=== PATIENT | female | born 1950 | race Caucasian/White ===

== ENCOUNTER → 2016-09-12 | Outpatient (CLI) | payer MEDICARE, OTHER ==
[2016-09-12 10:03] LABS: MEAN CORPUSCULAR HGB CONC 33.3 g/dl (32.0-36.5); MEAN CORPUSCULAR VOLUME 90.1 fl (80.0-96.0); RED CELL DISTRIBUTION WIDTH 13.5 % (11.5-14.5); WHITE BLOOD COUNT 5.3 K/mm3 (4.0-10.0)
--- NOTE | 2016-09-12 10:34 | REP ---
Chest two views HISTORY: Hypertension Comparison: 02/28/2011 The lungs are clear. The heart is normal in size. The pulmonary vasculature is normal in appearance. The bony structure is intact. A dorsal column stimulator is present at the C7-T1 level. IMPRESSION: No acute disease. Signed by Tom Jackson MD 09/12/2016 10:25 A
[2016-09-12 10:36] LABS: ALBUMIN 3.5 GM/DL (3.2-5.2); ALBUMIN/GLOBULIN RATIO 1.17 (1.00-1.93); ALKALINE PHOSPHATASE 49 U/L (45-117); ALT/SGPT 22 U/L (12-78); ANION GAP 8 MEQ/L (8-16); AST/SGOT 9 U/L (15-37); BILIRUBIN,TOTAL 0.6 MG/DL (0.2-1.0); BLOOD UREA NITROGEN 17 MG/DL (7-18); CALCIUM LEVEL 8.7 MG/DL (8.8-10.2); CARBON DIOXIDE LEVEL 33 MEQ/L (21-32); CHLORIDE LEVEL 99 MEQ/L (98-107); CHOLESTEROL LEVEL 231 MG/DL (<200); CREATININE FOR GFR 0.82 MG/DL (0.55-1.02); GLOMERULAR FILTRATION RATE > 60.0 (>45); GLUCOSE, FASTING 102 MG/DL (80-110); POTASSIUM SERUM 3.2 MEQ/L (3.5-5.1); SODIUM LEVEL 140 MEQ/L (136-145); THYROXINE (T4) 10.6 UG/DL (4.5-12.0); TOTAL PROTEIN 6.5 GM/DL (6.4-8.2); TRIGLYCERIDES LEVEL 95 MG/DL (<150)
--- NOTE | 2016-09-13 07:59 | ECGEPIP ---
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
== END ==
LOC: M LAB 09:04
PROVIDERS: ATTEND Family Medicine
DX: I10 Essential (primary) hypertension (principal); E03.9 Hypothyroidism, unspecified

== ENCOUNTER → 2016-09-18 | Outpatient (REF) | payer MEDICARE, OTHER | LOC: M LAB REF 16:21 | PROVIDERS: ATTEND Nurse Practitioner Family | DX: L08.9 Local infection of the skin and subcutaneous tissue, unspecified (principal) ==

== ENCOUNTER → 2018-02-08 | Outpatient (CLI) | payer MEDICARE, OTHER ==
[2018-02-08 13:00] LABS: HEMATOCRIT 45.3 % (36.0-47.0); HEMOGLOBIN 15.2 g/dl (12.0-15.5); MEAN CORPUSCULAR HEMOGLOBIN 29.6 pg (27.0-33.0); MEAN CORPUSCULAR HGB CONC 33.6 g/dl (32.0-36.5); MEAN CORPUSCULAR VOLUME 88.3 fl (80.0-96.0); PLATELET COUNT, AUTOMATED 323 10^3/uL (150-450); RED BLOOD COUNT 5.13 10^6/uL (4.00-5.40); RED CELL DISTRIBUTION WIDTH 14.7 % (11.5-14.5); WHITE BLOOD COUNT 6.8 10^3/uL (4.0-10.0)
[2018-02-08 13:37] LABS: ALBUMIN 3.6 GM/DL (3.2-5.2); ALKALINE PHOSPHATASE 47 U/L (45-117); ALT/SGPT 26 U/L (12-78); ANION GAP 9 MEQ/L (8-16); AST/SGOT 13 U/L (7-37); BILIRUBIN,TOTAL 0.6 MG/DL (0.2-1.0); BLOOD UREA NITROGEN 17 MG/DL (7-18); CALCIUM LEVEL 8.6 MG/DL (8.8-10.2); CARBON DIOXIDE LEVEL 28 MEQ/L (21-32); CHLORIDE LEVEL 104 MEQ/L (98-107); CHOLESTEROL LEVEL 248 MG/DL (<200); CHOLESTEROL RISK RATIO 3.542 (<5); CREATININE FOR GFR 0.85 MG/DL (0.55-1.30); GLOMERULAR FILTRATION RATE > 60.0 (>39); GLUCOSE, FASTING 88 MG/DL (70-100); HDL CHOLESTEROL 70 MG/DL (>40); LDL CHOLESTEROL 152 MG/DL (<100); NON-HDL-C 178 MG/DL; POTASSIUM SERUM 3.7 MEQ/L (3.5-5.1); SODIUM LEVEL 141 MEQ/L (136-145); THYROID STIMULATING HORMONE 0.336 uIU/ML (0.358-3.740); TOTAL PROTEIN 6.6 GM/DL (6.4-8.2); TRIGLYCERIDES LEVEL 128 MG/DL (<150)
[2018-02-08 13:59] LABS: TOTAL 25(OH) VITAMIN D 10.7 NG/ML (30.0-100.0)
[2018-02-08 14:10] LABS: ESTIMATED AVERAGE GLUCOSE 114 MG/DL (60-110); HEMOGLOBIN A1c 5.6 %
== END ==
LOC: M LAB 12:03
DX: R53.83 Other fatigue (principal); E03.9 Hypothyroidism, unspecified; J44.9 Chronic obstructive pulmonary disease, unspecified; Z79.899 Other long term (current) drug therapy
CPT/HCPCS: 71046

== ENCOUNTER → 2018-02-17 | Outpatient (CLI) | payer MEDICARE, OTHER ==
[~2018-02-17] MED LIST: E-Z-GAS II EFFERVESCENT PACKET (SODIUM BICARB./CITRIC ACID/SIMETHICONE) As Ordered; E-Z-HD 98% w/w 340GM SUSP BTL As Ordered; E-Z-PAQUE 96% w/w SUSP 176GM BTL As Ordered
== END ==
LOC: M RAD 10:00
DX: R10.13 Epigastric pain (principal); K57.10 Diverticulosis of small intestine without perforation or abscess without bleeding; K44.9 Diaphragmatic hernia without obstruction or gangrene; K21.9 Gastro-esophageal reflux disease without esophagitis
CPT/HCPCS: 74241

== ENCOUNTER → 2018-03-17 | Outpatient (CLI) | payer MEDICARE, OTHER ==
[2018-03-17 12:29] LABS: BASO # 0.1 10^3/uL (0.0-0.2); BASO % 0.7 % (0.0-1.0); EOS # 0.1 10^3/uL (0.0-0.50); EOS % 1.4 % (0.0-3.0); HEMATOCRIT 44.1 % (36.0-47.0); HEMOGLOBIN 14.6 g/dl (12.0-15.5); IMMATURE GRANULOCYTE % 1.4 % (0-3.0); LYMPH # 1.2 10^3/uL (1.5-4.5); LYMPH % 17.1 % (24.0-44.0); MEAN CORPUSCULAR HEMOGLOBIN 29.6 pg (27.0-33.0); MEAN CORPUSCULAR HGB CONC 33.1 g/dl (32.0-36.5); MEAN CORPUSCULAR VOLUME 89.5 fl (80.0-96.0); MONO # 0.6 10^3/uL (0.0-0.8); MONO % 8.3 % (0.0-5.0); NEUTROPHILS % 71.1 % (36.0-66.0); PLATELET COUNT, AUTOMATED 321 10^3/uL (150-450); RED BLOOD COUNT 4.93 10^6/uL (4.00-5.40); RED CELL DISTRIBUTION WIDTH 14.9 % (11.5-14.5); WHITE BLOOD COUNT 7.1 10^3/uL (4.0-10.0)
[2018-03-17 13:15] LABS: ANION GAP 11 MEQ/L (8-16); BLOOD UREA NITROGEN 16 MG/DL (7-18); CALCIUM LEVEL 8.7 MG/DL (8.8-10.2); CARBON DIOXIDE LEVEL 30 MEQ/L (21-32); CHLORIDE LEVEL 98 MEQ/L (98-107); CREATININE FOR GFR 1.04 MG/DL (0.55-1.30); GLOMERULAR FILTRATION RATE 55.8 (>39); GLUCOSE, FASTING 101 MG/DL (70-100); POTASSIUM SERUM 3.4 MEQ/L (3.5-5.1); SODIUM LEVEL 139 MEQ/L (136-145)
== END ==
LOC: M LAB 11:25
DX: R07.9 Chest pain, unspecified (principal); R06.02 Shortness of breath; R42 Dizziness and giddiness
CPT/HCPCS: 80048

== ENCOUNTER → 2018-03-22 | Outpatient (CLI) | payer MEDICARE, OTHER ==
[2018-03-22 15:04] LABS: CREATININE FOR GFR 0.98 MG/DL (0.55-1.30); GLOMERULAR FILTRATION RATE 59.7 (>39)
== END ==
LOC: M LAB 13:00
DX: Z01.810 Encounter for preprocedural cardiovascular examination (principal)
CPT/HCPCS: 82565

== ENCOUNTER → 2018-07-08 | Outpatient (CLI) | payer OTHER, MEDICARE ==
--- NOTE | 2018-07-09 11:42 | REP ---
Clinical: Pneumonia . Comparison: 02/08/2018 . Technique: PA and lateral. Findings: The mediastinum and cardiac silhouette are normal. Dorsal column stimulator in stable position. The lung shetty are clear and without acute consolidation, effusion, or pneumothorax. The skeletal structures are intact and normal. Impression: 1. No acute cardiopulmonary process. Electronically Signed by Luis Enrique Florez MD 07/09/2018 11:33 A
== END ==
LOC: M RAD 12:07
PROVIDERS: ATTEND Family Medicine
DX: J18.9 Pneumonia, unspecified organism (principal)

== ENCOUNTER → 2018-07-21 | Outpatient (CLI) | payer MEDICARE, OTHER ==
[2018-07-21 14:18] LABS: CHOLESTEROL RISK RATIO 4.056 (<5)
== END ==
LOC: M LAB 12:45
PROVIDERS: ATTEND Physician Assistant Medical
DX: R42 Dizziness and giddiness (principal)

== ENCOUNTER → 2018-08-29 | Outpatient (CLI) | payer MEDICARE, OTHER ==
--- NOTE | 2018-08-30 09:32 | REP ---
Left knee series: Five views. History: Pain. Findings: Five views of the left knee demonstrate severe three compartment osteoarthritis of the knee. There is patellofemoral joint space narrowing and sclerosis and exuberant osteophyte formation. There is as spurring in the medial and lateral compartment as well. There is fullness in the suprapatellar bursa effusion. A fabella is noted posterolaterally. An accessory ossicle is seen lateral to the patella on sunrise view. Impression: Severe three compartment osteoarthritis of the left knee. Electronically Signed by Jaycob Carlos MD 08/29/2018 01:33 P
== END ==
LOC: M WUC 13:02
PROVIDERS: ATTEND Physician Assistant
DX: M25.562 Pain in left knee (principal)

== ENCOUNTER → 2019-01-24 | Outpatient (CLI) | payer MEDICARE, OTHER ==
[2019-01-24 17:16] LABS: ALBUMIN 3.5 GM/DL (3.2-5.2); PERCENT SATURATION 32.8 % (13.2-45.0); THYROID STIMULATING HORMONE 0.272 uIU/ML (0.358-3.740)
[2019-01-24 17:23] LABS: BASO # 0.1 10^3/uL (0.0-0.2); BASO % 0.8 % (0.0-1.0); EOS # 0.2 10^3/uL (0.0-0.5); EOS % 2.7 % (0.0-3.0); HEMATOCRIT 43.4 % (36.0-47.0); HEMOGLOBIN 14.3 g/dl (12.0-15.5); LYMPH # 1.7 10^3/uL (1.5-5.0); LYMPH % 18.9 % (24.0-44.0); MEAN CORPUSCULAR HEMOGLOBIN 28.9 pg (27.0-33.0); MEAN CORPUSCULAR HGB CONC 32.9 g/dl (32.0-36.5); MEAN CORPUSCULAR VOLUME 87.7 fl (80.0-96.0); MONO # 0.7 10^3/uL (0.0-0.8); MONO % 7.5 % (0.0-5.0); NEUTROPHILS # 6.1 10^3/uL (1.5-8.5); NEUTROPHILS % 69.3 % (36.0-66.0); PLATELET COUNT, AUTOMATED 404 10^3/uL (150-450); RED BLOOD COUNT 4.95 10^6/uL (4.00-5.40); WHITE BLOOD COUNT 8.8 10^3/uL (4.0-10.0)
== END ==
LOC: M WUC 14:14
PROVIDERS: ATTEND Orthopaedic Surgery
DX: Z01.818 Encounter for other preprocedural examination (principal); R53.1 Weakness; D63.8 Anemia in other chronic diseases classified elsewhere; M25.562 Pain in left knee; M17.12 Unilateral primary osteoarthritis, left knee

== ENCOUNTER → 2019-02-24 | Outpatient (CLI) | payer MEDICARE, OTHER ==
--- NOTE | 2019-02-24 08:16 | REP ---
CHEST X-RAY: Two views. HISTORY: Hypertension. COMPARISON STUDY: July 08, 2018. FINDINGS: There is evidence of a dorsal column stimulator lead terminating at the cervicothoracic junction. The lungs are symmetrically aerated and free of infiltrate. Heart size is normal. The thoracic aorta is somewhat tortuous. No significant bony abnormality is seen. Pulmonary vasculature is not increased. IMPRESSION: Dorsal column stimulator leads seen. Otherwise no acute disease. Electronically Signed by Jaycob Carlos MD 02/24/2019 10:23 A
[2019-02-24 08:40] LABS: THYROID STIMULATING HORMONE 0.251 uIU/ML (0.358-3.740); THYROXINE (T4) 13.4 UG/DL (4.5-12.0)
[2019-02-24 08:42] LABS: TOTAL T3 125.5 NG/DL (60.0-181.0)
== END ==
LOC: M LAB 07:19
PROVIDERS: ATTEND Family Medicine
DX: E03.9 Hypothyroidism, unspecified (principal); I10 Essential (primary) hypertension

== ENCOUNTER → 2019-03-06 | Outpatient (CLI) | payer MEDICARE, OTHER ==
[2019-03-06 08:47] LABS: POTASSIUM SERUM 3.3 MEQ/L (3.5-5.1)
== END ==
LOC: M LAB 08:07
PROVIDERS: ATTEND Family Medicine
DX: E78.5 Hyperlipidemia, unspecified (principal); I10 Essential (primary) hypertension

== ENCOUNTER 2021-09-16 19:03 | Emergency (ER) | payer MEDICARE, OTHER ==
[~2021-09-16] VITALS: Ht 167.6 cm; Wt 78.6 kg
[2021-09-16 20:49] LABS: BASO % 0.3 % (0.0-1.0); HEMATOCRIT 46.8 % (36.0-47.0); LYMPH # 0.8 10^3/uL (1.5-5.0); LYMPH % 5.9 % (24.0-44.0); MEAN CORPUSCULAR HEMOGLOBIN 28.7 pg (27.0-33.0); MEAN CORPUSCULAR HGB CONC 34.2 g/dl (32.0-36.5); NEUTROPHILS # 11.9 10^3/uL (1.5-8.5); NEUTROPHILS % 86.1 % (36.0-66.0); PLATELET COUNT, AUTOMATED 279 10^3/uL (150-450); RED BLOOD COUNT 5.57 10^6/uL (4.00-5.40); WHITE BLOOD COUNT 13.8 10^3/uL (4.0-10.0)
[2021-09-16 21:00] LABS: ALBUMIN 3.1 GM/DL (3.2-5.2); BILIRUBIN,DIRECT 0.2 MG/DL (0.0-0.2); BILIRUBIN,TOTAL 0.6 MG/DL (0.2-1.0); CREATININE FOR GFR 1.02 MG/DL (0.55-1.30); GLOMERULAR FILTRATION RATE 56.6 (>39); POTASSIUM SERUM 3.6 MEQ/L (3.5-5.1); TOTAL PROTEIN 6.5 GM/DL (6.4-8.2)
[2021-09-16 21:06] LABS: CK-MB VALUE MASS 3.5 NG/ML (<3.6); MB/CK RELATIVE INDEX 4.22 (< OR =4)
[2021-09-16] MEDS ORDERED: NS 1,000 ML IV ONE (21:50)
[2021-09-16] MEDS ORDERED: HEPARIN DRIP 25,000 UNITS in IV 1 EA IV SCH (22:05)
[2021-09-16] MEDS ORDERED: HEPARIN SOD (PORCINE) 5000UNITS/ML 1ML VIAL/SYRINGE IV ONE (22:05)
[2021-09-16] MEDS ORDERED: HEPARIN SOD (PORCINE) 5000UNITS/ML 1ML VIAL/SYRINGE IV PRN (22:05)
[2021-09-16] MEDS ORDERED: NITROGLYCERIN 0.4 MG SUBL TABLET SL PRN (22:15)
[2021-09-16 23:05] LABS: HEMATOCRIT 45.9 % (36.0-47.0); HEMOGLOBIN 15.7 g/dl (12.0-15.5); MEAN CORPUSCULAR HEMOGLOBIN 28.9 pg (27.0-33.0); MEAN CORPUSCULAR HGB CONC 34.2 g/dl (32.0-36.5); MEAN CORPUSCULAR VOLUME 84.5 fl (80.0-96.0); PLATELET COUNT, AUTOMATED 248 10^3/uL (150-450); RED BLOOD COUNT 5.43 10^6/uL (4.00-5.40); WHITE BLOOD COUNT 12.4 10^3/uL (4.0-10.0)
[2021-09-17 01:15] VITALS: BP 143/83
== END 2021-09-17 01:30 | disposition short-term general hospital (02) ==
LOC: M ED 19:03
DX: I21.4 Non-ST elevation (NSTEMI) myocardial infarction (principal); I10 Essential (primary) hypertension; E78.5 Hyperlipidemia, unspecified; I25.2 Old myocardial infarction; Z88.1 Allergy status to other antibiotic agents; Z88.2 Allergy status to sulfonamides; Z91.030 Bee allergy status

== ENCOUNTER → 2021-10-01 | Outpatient (CLI) | payer MEDICARE, OTHER ==
[2021-10-01 12:24] LABS: HEMOGLOBIN 11.6 g/dl (12.0-15.5); MEAN CORPUSCULAR HEMOGLOBIN 28.9 pg (27.0-33.0); MEAN CORPUSCULAR HGB CONC 32.2 g/dl (32.0-36.5); MEAN CORPUSCULAR VOLUME 89.8 fl (80.0-96.0); PLATELET COUNT, AUTOMATED 351 10^3/uL (150-450); RED BLOOD COUNT 4.01 10^6/uL (4.00-5.40); WHITE BLOOD COUNT 8.6 10^3/uL (4.0-10.0)
[2021-10-01 12:52] LABS: BLOOD UREA NITROGEN 10 MG/DL (7-18); CALCIUM LEVEL 8.8 MG/DL (8.8-10.2); CARBON DIOXIDE LEVEL 27 MEQ/L (21-32); CHLORIDE LEVEL 111 MEQ/L (98-107); CREATININE FOR GFR 0.89 MG/DL (0.55-1.30); GLOMERULAR FILTRATION RATE > 60.0 (>39); GLUCOSE, FASTING 88 MG/DL (70-100); POTASSIUM SERUM 3.7 MEQ/L (3.5-5.1); SODIUM LEVEL 145 MEQ/L (136-145)
== END ==
LOC: M LAB 11:20
PROVIDERS: ATTEND Physician Assistant Medical
DX: I26.99 Other pulmonary embolism without acute cor pulmonale (principal)

== ENCOUNTER → 2021-12-03 | Outpatient (REF) | payer MEDICARE, OTHER | LOC: M SFHCDERM 13:43 | PROVIDERS: ATTEND Dermatology | DX: D23.4 Other benign neoplasm of skin of scalp and neck (principal) ==

== ENCOUNTER → 2023-03-16 | Outpatient (CLI) | payer MEDICARE, OTHER ==
[2023-03-16 13:27] LABS: HEMATOCRIT 49.7 % (36.0-47.0); HEMOGLOBIN 16.3 g/dl (12.0-15.5); MEAN CORPUSCULAR HGB CONC 32.8 g/dl (32.0-36.5); MEAN CORPUSCULAR VOLUME 88.4 fl (80.0-96.0); PLATELET COUNT, AUTOMATED 359 10^3/uL (150-450); RED BLOOD COUNT 5.62 10^6/uL (4.00-5.40); WHITE BLOOD COUNT 6.8 10^3/uL (4.0-10.0)
[2023-03-16 13:57] LABS: ALBUMIN 3.6 G/DL (3.2-5.2); ALKALINE PHOSPHATASE 80 U/L (46-116); ALT/SGPT 19 U/L (7.0-40); AST/SGOT 14 U/L (<34); BILIRUBIN,TOTAL 0.8 MG/DL (0.3-1.2); BLOOD UREA NITROGEN 11 MG/DL (9-23); CALCIUM LEVEL 9.3 MG/DL (8.3-10.6); CARBON DIOXIDE LEVEL 29 MMOL/L (20-31); CHLORIDE LEVEL 102 MMOL/L (98-107); CHOLESTEROL LEVEL 214 MG/DL (<200); CHOLESTEROL RISK RATIO 3.43 (<5); CREATININE FOR GFR 0.68 MG/DL (0.55-1.30); GLOMERULAR FILTRATION RATE > 60.0 (>39); GLUCOSE, FASTING 112 MG/DL (74-106); HDL CHOLESTEROL 62.3 MG/DL (>40); LDL CHOLESTEROL 133.1 MG/DL (<100); NON-HDL-C 151.7 MG/DL; POTASSIUM SERUM 3.6 MMOL/L (3.5-5.1); SODIUM LEVEL 139 MMOL/L (136-145); THYROID STIMULATING HORMONE 0.048 uIU/ML (0.55-4.78); TOTAL 25(OH) VITAMIN D 20.4 NG/ML (20.0-100.0); TOTAL PROTEIN 6.6 G/DL (5.7-8.2); TRIGLYCERIDES LEVEL 93 MG/DL (<150)
[2023-03-16 14:00] LABS: HEMOGLOBIN A1c 5.3 % (4.0-6.0)
== END ==
LOC: M RAD 12:14
PROVIDERS: ATTEND Family Medicine
DX: J44.9 Chronic obstructive pulmonary disease, unspecified (principal); D64.9 Anemia, unspecified; R53.83 Other fatigue; Z95.828 Presence of other vascular implants and grafts

== ENCOUNTER → 2023-05-05 | Outpatient (CLI) | payer MEDICARE, OTHER ==
[2023-05-05 09:28] LABS: CHOLESTEROL RISK RATIO 3.06 (<5); HDL CHOLESTEROL 52.2 MG/DL (>40); LDL CHOLESTEROL 89.6 MG/DL (<100); NON-HDL-C 107.8 MG/DL
== END ==
LOC: M LAB 08:20
PROVIDERS: ATTEND Internal Medicine Cardiovascular Disease
DX: E78.49 Other hyperlipidemia (principal)

== ENCOUNTER → 2023-06-29 | Outpatient (CLI) | payer MEDICARE, OTHER | LOC: M PLAIMG 09:59 | PROVIDERS: ATTEND Internal Medicine Pulmonary Disease | DX: R06.02 Shortness of breath (principal); J47.9 Bronchiectasis, uncomplicated; J98.11 Atelectasis; R91.8 Other nonspecific abnormal finding of lung field; I70.0 Atherosclerosis of aorta; K44.9 Diaphragmatic hernia without obstruction or gangrene ==

== ENCOUNTER 2023-08-18 08:48 | Emergency (ER) | payer MEDICARE, OTHER ==
[~2023-08-18] VITALS: Ht 162.6 cm; Wt 74.0 kg
[2023-08-18] MEDS ORDERED: ELIQ5TAB PO (09:17)
[2023-08-18] MEDS ORDERED: LEXA1TAB PO (09:19)
[2023-08-18] MEDS ORDERED: CARV3.12 PO (09:19)
[2023-08-18] MEDS ORDERED: ATOR80TA59 PO (09:19)
[2023-08-18] MEDS ORDERED: LEVO112T2 PO (09:20)
[2023-08-18] MEDS ORDERED: OMEP40CA4 PO (09:20)
[2023-08-18] MEDS ORDERED: HYDR12.55 PO (09:20)
[2023-08-18 10:11] LABS: BASO % 0.4 % (0.0-1.0); EOS # 0.1 10^3/uL (0.0-0.5); EOS % 1.3 % (0.0-3.0); HEMATOCRIT 43.2 % (36.0-47.0); HEMOGLOBIN 14.3 g/dl (12.0-15.5); LYMPH # 1.3 10^3/uL (1.5-5.0); LYMPH % 15.5 % (24.0-44.0); MEAN CORPUSCULAR HEMOGLOBIN 28.6 pg (27.0-33.0); MEAN CORPUSCULAR HGB CONC 33.1 g/dl (32.0-36.5); MEAN CORPUSCULAR VOLUME 86.4 fl (80.0-96.0); MONO # 0.8 10^3/uL (0.0-0.8); MONO % 8.8 % (2.0-8.0); NEUTROPHILS # 6.2 10^3/uL (1.5-8.5); NEUTROPHILS % 73.1 % (36.0-66.0); PLATELET COUNT, AUTOMATED 296 10^3/uL (150-450); WHITE BLOOD COUNT 8.5 10^3/uL (4.0-10.0)
[2023-08-18 10:34] LABS: LIPASE 22 U/L (12-53)
[2023-08-18 10:36] LABS: ALBUMIN 3.3 G/DL (3.2-5.2); ALKALINE PHOSPHATASE 80 U/L (46-116); ALT/SGPT 22 U/L (7.0-40); AST/SGOT 13 U/L (<34); BILIRUBIN,DIRECT 0.2 MG/DL (<0.4); BILIRUBIN,TOTAL 0.6 MG/DL (0.3-1.2); BLOOD UREA NITROGEN 11 MG/DL (9-23); CALCIUM LEVEL 8.9 MG/DL (8.3-10.6); CARBON DIOXIDE LEVEL 30 MMOL/L (20-31); CHLORIDE LEVEL 101 MMOL/L (98-107); CREATININE FOR GFR 0.78 MG/DL (0.55-1.30); GLOMERULAR FILTRATION RATE > 60.0 (>39); GLUCOSE, FASTING 121 MG/DL (74-106); POTASSIUM SERUM 3.2 MMOL/L (3.5-5.1); SODIUM LEVEL 139 MMOL/L (136-145); TOTAL PROTEIN 5.9 G/DL (5.7-8.2)
[2023-08-18] MEDS ORDERED: CIPR250T26 PO (11:08)
[2023-08-18] MEDS ORDERED: CEFD300C PO (11:21)
[2023-08-18] MEDS ORDERED: CIPROFLOXACIN 500MG TABLET PO ONE (11:30)
[2023-08-18] MEDS: CEFDINIR 300 MG CAP (OMNICEF) PO ONE (12:08)
[2023-08-18 12:11] VITALS: BP 151/89; TEMP 97.2; O2SAT 97
== END 2023-08-18 12:25 | disposition home or self-care (01) ==
LOC: M ED 08:48
DX: N39.0 Urinary tract infection, site not specified (principal); I10 Essential (primary) hypertension; Z86.73 Personal history of transient ischemic attack (TIA), and cerebral infarction without residual deficits; Z79.01 Long term (current) use of anticoagulants; Z79.899 Other long term (current) drug therapy; Z88.2 Allergy status to sulfonamides; Z88.1 Allergy status to other antibiotic agents; Z91.030 Bee allergy status

== ENCOUNTER → 2024-01-21 | Outpatient (CLI) | payer MEDICARE, OTHER ==
[~2024-01-21] MED LIST changes: +ATOR80TA59 PO; +CARV3.12 PO; +CEFD300C PO; +CIPR250T26 PO; -E-Z-GAS II EFFERVESCENT PACKET (SODIUM BICARB./CITRIC ACID/SIMETHICONE) As Ordered; -E-Z-HD 98% w/w 340GM SUSP BTL As Ordered; -E-Z-PAQUE 96% w/w SUSP 176GM BTL As Ordered; +ELIQ5TAB PO; +HYDR12.55 PO; +LEVO112T2 PO; +LEXA1TAB PO; +OMEP40CA4 PO
== END ==
LOC: M RAD 11:30
PROVIDERS: ATTEND Internal Medicine Pulmonary Disease
DX: R91.8 Other nonspecific abnormal finding of lung field (principal); J43.2 Centrilobular emphysema; I25.10 Atherosclerotic heart disease of native coronary artery without angina pectoris; K44.9 Diaphragmatic hernia without obstruction or gangrene; K57.90 Diverticulosis of intestine, part unspecified, without perforation or abscess without bleeding

== ENCOUNTER → 2024-03-01 | Outpatient (CLI) | payer MEDICARE, OTHER ==
[2024-03-01 11:06] LABS: HEMATOCRIT 43.8 % (36.0-47.0); HEMOGLOBIN 14.6 g/dl (12.0-15.5); MEAN CORPUSCULAR HEMOGLOBIN 29.3 pg (27.0-33.0); MEAN CORPUSCULAR HGB CONC 33.3 g/dl (32.0-36.5); MEAN CORPUSCULAR VOLUME 87.8 fl (80.0-96.0); PLATELET COUNT, AUTOMATED 306 10^3/uL (150-450); RED BLOOD COUNT 4.99 10^6/uL (4.00-5.40); WHITE BLOOD COUNT 6.2 10^3/uL (4.0-10.0)
[2024-03-01 11:30] LABS: HEMOGLOBIN A1c 5.5 % (4.0-6.0)
[2024-03-01 11:34] LABS: IRON (FE) 83 UG/DL (50-170); PERCENT SATURATION 26.6 % (13.2-45.0); TOTAL IRON BINDING CAPACITY 312 UG/DL (250-425)
[2024-03-01 11:35] LABS: ALBUMIN 3.4 G/DL (3.2-5.2); ALKALINE PHOSPHATASE 90 U/L (46-116); ALT/SGPT 20 U/L (7.0-40); AST/SGOT 9 U/L (<34); BILIRUBIN,TOTAL 0.8 MG/DL (0.3-1.2); BLOOD UREA NITROGEN 11 MG/DL (9-23); CALCIUM LEVEL 9.3 MG/DL (8.3-10.6); CARBON DIOXIDE LEVEL 32 MMOL/L (20-31); CHLORIDE LEVEL 102 MMOL/L (98-107); CHOLESTEROL LEVEL 183 MG/DL (<200); CREATININE FOR GFR 0.82 MG/DL (0.55-1.30); GLOMERULAR FILTRATION RATE > 60.0 (>39); GLUCOSE, FASTING 106 MG/DL (74-106); HDL CHOLESTEROL 65.2 MG/DL (>40); LDL CHOLESTEROL 101.4 MG/DL (<100); NON-HDL-C 117.8 MG/DL; POTASSIUM SERUM 3.8 MMOL/L (3.5-5.1); SODIUM LEVEL 136 MMOL/L (136-145); TOTAL PROTEIN 6.3 G/DL (5.7-8.2); TRIGLYCERIDES LEVEL 82 MG/DL (<150)
[2024-03-01 11:36] LABS: THYROID STIMULATING HORMONE 0.082 uIU/ML (0.55-4.78); TOTAL 25(OH) VITAMIN D 75.7 NG/ML (20.0-100.0)
== END ==
LOC: M RAD 09:56
PROVIDERS: ATTEND Family Medicine
DX: I10 Essential (primary) hypertension (principal); R53.83 Other fatigue; E03.9 Hypothyroidism, unspecified

== ENCOUNTER → 2024-03-04 | Outpatient (CLI) | payer MEDICARE, OTHER | LOC: M RAD 09:44 | PROVIDERS: ATTEND Family Medicine | DX: M17.11 Unilateral primary osteoarthritis, right knee (principal) ==

== ENCOUNTER → 2024-08-02 | Outpatient (CLI) | payer MEDICARE, OTHER ==
[2024-08-02 09:44] LABS: HEMOGLOBIN 15.1 g/dl (12.0-15.5); MEAN CORPUSCULAR HEMOGLOBIN 29.9 pg (27.0-33.0); MEAN CORPUSCULAR HGB CONC 32.8 g/dl (32.0-36.5); MEAN CORPUSCULAR VOLUME 91.1 fl (80.0-96.0); PLATELET COUNT, AUTOMATED 298 10^3/uL (150-450); RED BLOOD COUNT 5.05 10^6/uL (4.00-5.40); WHITE BLOOD COUNT 6.8 10^3/uL (4.0-10.0)
[2024-08-02 10:17] LABS: ALBUMIN 3.5 G/DL (3.2-5.2); ALKALINE PHOSPHATASE 70 U/L (35-104); ALT/SGPT 21 U/L (7.0-40); AST/SGOT 15 U/L (<34); BILIRUBIN,TOTAL 0.7 MG/DL (0.3-1.2); BLOOD UREA NITROGEN 8 MG/DL (9-23); CALCIUM LEVEL 9.2 MG/DL (8.3-10.6); CARBON DIOXIDE LEVEL 30 MMOL/L (20-31); CHLORIDE LEVEL 106 MMOL/L (98-107); CHOLESTEROL LEVEL 183 MG/DL (<200); CHOLESTEROL RISK RATIO 3.02 (<5); CREATININE FOR GFR 0.87 MG/DL (0.55-1.30); GLOMERULAR FILTRATION RATE > 60.0 (>39); GLUCOSE, FASTING 112 MG/DL (74-106); HDL CHOLESTEROL 60.5 MG/DL (>40); LDL CHOLESTEROL 95.9 MG/DL (<100); NON-HDL-C 122.5 MG/DL; SODIUM LEVEL 143 MMOL/L (136-145); TOTAL PROTEIN 6.4 G/DL (5.7-8.2); TRIGLYCERIDES LEVEL 133 MG/DL (<150)
[2024-08-02 10:18] LABS: THYROXINE (T4) 7.4 UG/DL (4.5-10.9)
[2024-08-02 10:19] LABS: THYROID STIMULATING HORMONE 14.923 uIU/ML (0.55-4.78); TOTAL 25(OH) VITAMIN D 32.1 NG/ML (20.0-100.0)
[2024-08-02 10:31] LABS: HEMOGLOBIN A1c 5.5 % (4.0-6.0)
[2024-08-02 10:33] LABS: TOTAL T3 78.2 NG/DL (60.0-181.0)
== END ==
LOC: M LAB 09:07
PROVIDERS: ATTEND Family Medicine
DX: I10 Essential (primary) hypertension (principal)

== ENCOUNTER → 2024-09-27 | Outpatient (CLI) | payer MEDICARE, OTHER ==
[2024-09-27 12:34] LABS: HEMATOCRIT 45.4 % (36.0-47.0); HEMOGLOBIN 15.6 g/dl (12.0-15.5); MEAN CORPUSCULAR HEMOGLOBIN 29.3 pg (27.0-33.0); MEAN CORPUSCULAR HGB CONC 34.4 g/dl (32.0-36.5); MEAN CORPUSCULAR VOLUME 85.2 fl (80.0-96.0); PLATELET COUNT, AUTOMATED 360 10^3/uL (150-450); RED BLOOD COUNT 5.33 10^6/uL (4.00-5.40); WHITE BLOOD COUNT 8.3 10^3/uL (4.0-10.0)
[2024-09-27 13:14] LABS: PERCENT SATURATION 21.7 % (13.2-45.0)
[2024-09-27 13:16] LABS: THYROID STIMULATING HORMONE 0.107 uIU/ML (0.55-4.78); TOTAL 25(OH) VITAMIN D 36.8 NG/ML (20.0-100.0)
[2024-09-27 13:45] LABS: HEMOGLOBIN A1c 5.7 % (4.0-6.0)
[2024-09-27 13:58] LABS: ALBUMIN 3.8 G/DL (3.2-5.2); CALCIUM LEVEL 9.2 MG/DL (8.3-10.6); CREATININE FOR GFR 0.74 MG/DL (0.55-1.30); GLOMERULAR FILTRATION RATE 83.8 (>39); POTASSIUM SERUM 2.7 MMOL/L (3.5-5.1); TOTAL PROTEIN 6.7 G/DL (5.7-8.2)
== END ==
LOC: M LAB 11:57
PROVIDERS: ATTEND Family Medicine
DX: I10 Essential (primary) hypertension (principal); R53.83 Other fatigue; E03.9 Hypothyroidism, unspecified; Z79.899 Other long term (current) drug therapy

== ENCOUNTER → 2024-10-03 | Outpatient (CLI) | payer MEDICARE, OTHER ==
[2024-10-03 13:10] LABS: POTASSIUM SERUM 4.6 MMOL/L (3.5-5.1)
== END ==
LOC: M LAB 11:31
PROVIDERS: ATTEND Family Medicine
DX: E87.6 Hypokalemia (principal)

== ENCOUNTER → 2024-12-30 | Outpatient (CLI) | payer MEDICARE, OTHER ==
[~2024-12-30] MED LIST changes: +CIPR500T39; +POTA-151
[2024-12-30 10:44] LABS: FREE T4 2.05 NG/DL (0.89-1.76)
== END ==
LOC: M PLALAB 07:45
PROVIDERS: ATTEND Nurse Practitioner Family
DX: E03.9 Hypothyroidism, unspecified (principal)

== ENCOUNTER → 2025-01-27 | Outpatient (REF) | payer MEDICARE | LOC: M SFHCPLAZ 13:26 | PROVIDERS: ATTEND Family Medicine | DX: Z53.8 Procedure and treatment not carried out for other reasons (principal) ==

== ENCOUNTER → 2025-01-30 | Outpatient (CLI) | payer MEDICARE | LOC: M PLALAB 07:28 | PROVIDERS: ATTEND Family Medicine | DX: I10 Essential (primary) hypertension (principal) ==

== ENCOUNTER → 2025-02-22 | Outpatient (CLI) | payer MEDICARE, OTHER | LOC: M RAD 16:06 | PROVIDERS: ATTEND Family Medicine | DX: M79.89 Other specified soft tissue disorders (principal); M71.21 Synovial cyst of popliteal space [Baker], right knee ==

== ENCOUNTER → 2025-03-06 | Outpatient (CLI) | payer MEDICARE, OTHER | LOC: M PLALAB 08:53 | PROVIDERS: ATTEND Family Medicine | DX: I10 Essential (primary) hypertension (principal) ==

== ENCOUNTER → 2025-03-15 | Outpatient (CLI) | payer MEDICARE ==
[2025-03-15 11:18] LABS: FREE T4 1.68 NG/DL (0.89-1.76)
== END ==
LOC: M PLALAB 08:06
PROVIDERS: ATTEND Nurse Practitioner Family
DX: E03.9 Hypothyroidism, unspecified (principal)

== ENCOUNTER → 2025-03-29 | Outpatient (REF) | payer MEDICARE | LOC: M SFHCPLAZ 10:27 | PROVIDERS: ATTEND Family Medicine | DX: Z53.9 Procedure and treatment not carried out, unspecified reason (principal) ==

== ENCOUNTER → 2025-05-09 | Outpatient (CLI) | payer MEDICARE ==
[2025-05-09 08:43] LABS: ALT/SGPT 22 U/L (7.0-40); AST/SGOT 19 U/L (<34); CALCIUM LEVEL 8.7 MG/DL (8.3-10.6); CARBON DIOXIDE LEVEL 31 MMOL/L (20-31); CHLORIDE LEVEL 108 MMOL/L (98-107); CREATININE FOR GFR 0.71 MG/DL (0.55-1.30); GLOMERULAR FILTRATION RATE 87.5 (>39); POTASSIUM SERUM 4.1 MMOL/L (3.5-5.1); SODIUM LEVEL 145 MMOL/L (136-145)
[2025-05-09 08:48] LABS: VITAMIN B12 LEVEL 299 PG/ML (211-911)
== END ==
LOC: M LAB 07:22
PROVIDERS: ATTEND Family Medicine
DX: G31.84 Mild cognitive impairment of uncertain or unknown etiology (principal); Z11.3 Encounter for screening for infections with a predominantly sexual mode of transmission; Z72.89 Other problems related to lifestyle